=== PATIENT | male | born 1950 | race Caucasian/White ===

== ENCOUNTER 2017-01-31 03:55 | Emergency (ER) | payer OTHER ==
[~2017-01-31] VITALS: Ht 175.3 cm; Wt 65.8 kg
[~2017-01-31 03:55] MED LIST: ANTIBIOTIC PO; NORCO 5-325 TA1 EACH PO
[2017-01-31 05:10] VITALS: BP 159/72
== END 2017-01-31 05:10 | disposition home or self-care (01) ==
LOC: ER 03:55
DX: S01.81XA Laceration without foreign body of other part of head, initial encounter (principal); S80.02XA Contusion of left knee, initial encounter; F10.99 Alcohol use, unspecified with unspecified alcohol-induced disorder; W06.XXXA Fall from bed, initial encounter; Y93.89 Activity, other specified; Y92.89 Other specified places as the place of occurrence of the external cause; Y99.8 Other external cause status